=== PATIENT | male | born 1960 | race Caucasian/White ===

== ENCOUNTER → 2018-12-06 | Outpatient (CLI) | payer BC ==
[~2018-12-06] MED LIST: ALPR.5T PO; LISI20TA PO; METO25TA PO; [UNRECOGNIZED DRUG - CODE] PO
--- NOTE | 2018-12-06 17:36 | Diagnostic Imaging Report ---
INDICATION: Left hip pain. TIME OF EXAM: 5:27 PM FINDINGS: Two views of the left hip show normal femoral acetabular alignment. Joint space well maintained. Femoral head and neck are intact. No fractures are seen. IMPRESSION: No acute bony abnormality is detected. Dictated by: Dictated on workstation # [id number]
--- NOTE | 2018-12-06 17:41 | Diagnostic Imaging Report ---
INDICATION: Low back pain. Time of exam 5:26 p.m. FINDINGS: Three views of the lumbar spine were obtained. Curvature and alignment is normal. Vertebral body heights are well-maintained. There is degenerative disc disease at L4-5 and L5-S1 levels with disc space narrowing and marginal spurring. Vacuum disc phenomenon is also seen. No fractures are identified. There are atherosclerotic calcifications in the abdominal aorta. IMPRESSION: Lower lumbar spondylosis. No acute bony abnormality is detected. Dictated by: Dictated on workstation # [id number]
== END ==
LOC: RAD 17:14
PROVIDERS: ATTEND Nurse Practitioner Family
DX: M47.26 Other spondylosis with radiculopathy, lumbar region (principal); M16.12 Unilateral primary osteoarthritis, left hip
CPT/HCPCS: 72100; 73502

== ENCOUNTER → 2018-12-16 | Outpatient (CLI) | payer BC ==
--- NOTE | 2018-12-16 13:32 | Diagnostic Imaging Report ---
PROCEDURE: CT abdomen and pelvis without contrast. TECHNIQUE: Multiple contiguous axial images were obtained through the abdomen and pelvis without the use of intravenous contrast. Auto Exposure Controls were utilized during the CT exam to meet ALARA standards for radiation dose reduction. INDICATION: Microscopic hematuria. COMPARISON: No prior studies are available for comparison. FINDINGS: The lung bases are clear. The liver and gallbladder are unremarkable. No biliary ductal dilatation is seen. The pancreas and spleen are unremarkable. No adrenal mass is identified. No renal calculus or hydronephrosis is detected. No ureteral calculi are seen. Bladder demonstrates significant diffuse wall thickening. Prostate is unremarkable. The small and large bowel loops are normal caliber. There is no obstruction. There is generalized colonic diverticulosis but no evidence of acute diverticulitis. There is no ascites. There are fat-containing inguinal hernias bilaterally. IMPRESSION: 1. No evidence of urinary tract calculi or obstruction. There is significant bladder wall thickening. While this could be owing to cystitis, bladder neoplasm cannot be entirely excluded and cystoscopy is likely indicated. 2. Diverticulosis without evidence of acute diverticulitis. Dictated by: Dictated on workstation # [id number]
== END ==
LOC: RAD 12:07
PROVIDERS: ATTEND Nurse Practitioner Family
DX: K57.30 Diverticulosis of large intestine without perforation or abscess without bleeding (principal); N32.89 Other specified disorders of bladder; R31.29 Other microscopic hematuria
CPT/HCPCS: 74176